=== PATIENT | male | born 1955 | race Caucasian/White ===

== ENCOUNTER 2018-12-11 09:25 | Emergency (ER) | payer OTHER ==
[~2018-12-11] VITALS: Ht 170.2 cm; Wt 63.5 kg
--- NOTE | 2018-12-11 09:35 | NUR ---
Pt received ambulatory co pain on lower back and L flank due to fall from ladder 10ft (approx) 12/10/2018. denies hitting head, denies changes in loc, denies n.v.d noted abrasion ap-prox 15cm on lower back, approx 5x5cm healing bruise. MD at bedside for history and physical
[2018-12-11] MEDS ORDERED: IBUPROFEN 600 MG TABLET ONE (09:50)
--- NOTE | 2018-12-11 09:51 | NUR ---
Patient discharged to home in stable conditon. Written and verbal after care instructions given. Patient verbalizes understanding of instructions. AMBULATORY, ALL BELONGINGS WITH PATIENT.
[2018-12-11 09:57] VITALS: BP 107/70
[2018-12-11] MEDS ORDERED: IBUPROFEN 600 MG TABLET PO ONE (10:00)
== END 2018-12-11 09:58 | disposition home or self-care (01) ==
LOC: ER 09:25
DX: S30.1XXA Contusion of abdominal wall, initial encounter (principal); W11.XXXA Fall on and from ladder, initial encounter; Y93.89 Activity, other specified; Y92.89 Other specified places as the place of occurrence of the external cause; Y99.8 Other external cause status
CPT/HCPCS: A4663

== ENCOUNTER 2019-06-18 19:47 | Emergency (ER) | payer OTHER ==
[~2019-06-18] VITALS: Ht 170.2 cm; Wt 70.3 kg
[2019-06-18 20:25] LABS: *BILIRUBIN,URIN NEGATIVE (NEGATIVE); *BLOOD, URINE 3+ (NEGATIVE); *CLARITY,URINE SLIGHTLY CLOUDY (CLEAR); *COLOR,URINE AMBER (YELLOW); *KETONES,URINE NEGATIVE (NEGATIVE); *UROBILINOGEN,URINE 0.2 E.U./dl (NORMAL); LEUKOCYTE ESTERASE ,URINE 2+ (NEGATIVE); NITRITE, URINE NEGATIVE (NEGATIVE); UGLUCOSE NEGATIVE (NEGATIVE)
[2019-06-18 20:35] LABS: BACTERIA,URINE FEW /HPF (NONE SEEN); RBC,URINE 20-50 /HPF (0-3); SQUAMOUS EPITHELIAL CELL,UR FEW /HPF (NONE SEEN)
[2019-06-18 20:50] VITALS: BP 128/77
--- NOTE | 2019-06-18 20:50 | NUR ---
Patient discharged to home in stable conditon. Written and verbal after care instructions given. Patient verbalizes understanding of instructions. Ambulated from ER with stable gait. All belongings with patient.
== END 2019-06-18 20:51 | disposition home or self-care (01) ==
LOC: ER 19:47
DX: R31.9 Hematuria, unspecified (principal); F17.200 Nicotine dependence, unspecified, uncomplicated
CPT/HCPCS: 87086; A4663

== ENCOUNTER 2020-10-05 18:08 | Emergency (ER) | payer SELFPAY ==
[~2020-10-05] VITALS: Ht 167.6 cm; Wt 68.0 kg
[2020-10-05 18:40] LABS: *BILIRUBIN,URIN NEGATIVE (NEGATIVE); *BLOOD, URINE 2+ (NEGATIVE); *CLARITY,URINE SLIGHTLY CLOUDY (CLEAR); *COLOR,URINE YELLOW (YELLOW); *KETONES,URINE NEGATIVE (NEGATIVE); *UROBILINOGEN,URINE 0.2 E.U./dl (NORMAL); LEUKOCYTE ESTERASE ,URINE 1+ (NEGATIVE); NITRITE, URINE NEGATIVE (NEGATIVE); UGLUCOSE NEGATIVE (NEGATIVE)
[2020-10-05 18:52] LABS: BACTERIA,URINE FEW /HPF (NONE SEEN); RBC,URINE 20-50 /HPF (0-3); SQUAMOUS EPITHELIAL CELL,UR FEW /HPF (NONE SEEN)
[2020-10-05] MEDS ORDERED: SULF1TAB48 PO (18:52)
--- NOTE | 2020-10-05 18:57 | NUR ---
Patient discharged to home in stable condition with brisk steady gait. Written and verbal after care instructions given to patient. Patient verbalized understanding & compliance of instructions. Stressed follow up with his primary doctor and urologist or return to ER for worsening s/s.
[2020-10-05] MEDS ORDERED: SULFAMETH/TRIMETH 800/160 MG TABLET PO ONE (19:00)
[2020-10-05] MEDS ORDERED: SULFAMETH/TRIMETH 800/160 MG TABLET ONE (19:01)
== END 2020-10-05 18:58 | disposition home or self-care (01) ==
LOC: ER 18:08
DX: N39.0 Urinary tract infection, site not specified (principal); R31.0 Gross hematuria
CPT/HCPCS: 87086; A4663

== ENCOUNTER 2025-04-10 13:19 | Emergency (ER) | payer OTHER ==
[~2025-04-10] VITALS: Ht 170.2 cm; Wt 63.5 kg
[~2025-04-10 13:19] MED LIST: SULF1TAB48 PO
[2025-04-10 13:29] VITALS: BP 130/73
[2025-04-10 14:03] LABS: *BLOOD, URINE 3+ (NEGATIVE); *CLARITY,URINE CLOUDY (CLEAR); *COLOR,URINE Brown (YELLOW); *KETONES,URINE 1+ (NEGATIVE); *UROBILINOGEN,URINE 1.0 E.U./dl (NORMAL); LEUKOCYTE ESTERASE ,URINE NEGATIVE (NEGATIVE); NITRITE, URINE NEGATIVE (NEGATIVE); UGLUCOSE NEGATIVE (NEGATIVE)
[2025-04-10 14:04] LABS: *BILIRUBIN,URIN 1+ (NEGATIVE); *PROTEIN,URINE 3+ (NEGATIVE)
[2025-04-10] MEDS ORDERED: SULF1TAB48 PO (14:57)
[2025-04-10 15:11] VITALS: BP 130/73; O2SAT 97
== END 2025-04-10 15:13 | disposition home or self-care (01) ==
LOC: ER 13:19
DX: R31.29 Other microscopic hematuria (principal); F17.210 Nicotine dependence, cigarettes, uncomplicated; F12.90 Cannabis use, unspecified, uncomplicated; Z87.440 Personal history of urinary (tract) infections
CPT/HCPCS: 87086; A4606; A4663

== ENCOUNTER 2025-04-17 12:46 | Emergency (ER) | payer OTHER ==
[~2025-04-17] VITALS: Ht 170.2 cm; Wt 63.5 kg
[2025-04-17 12:49] VITALS: BP 100/47; O2SAT 96
== END 2025-04-17 13:22 | disposition home or self-care (01) ==
LOC: ER 12:46
DX: Z76.0 Encounter for issue of repeat prescription (principal); F12.90 Cannabis use, unspecified, uncomplicated; F17.200 Nicotine dependence, unspecified, uncomplicated
CPT/HCPCS: A4606; A4663